=== PATIENT | male | born 1990 | race Caucasian/White ===

== ENCOUNTER 2024-05-11 00:41 | Emergency (ER) | payer SELFPAY ==
[2024-05-11 00:54] VITALS: BP 138/82; PULSE 102; RESP 20; TEMP 97.8; BMI 30.7
== END 2024-05-11 01:59 | disposition home or self-care (01) ==
LOC: JER 00:41
DX: F41.9 Anxiety disorder, unspecified (principal); R00.0 Tachycardia, unspecified; F14.90 Cocaine use, unspecified, uncomplicated; F10.90 Alcohol use, unspecified, uncomplicated; Y90.9 Presence of alcohol in blood, level not specified
CPT/HCPCS: 93005; 93010; 99283-25